=== PATIENT | female | born 1985 | race Caucasian/White ===

== ENCOUNTER → 2019-05-01 | Outpatient (CLI) | payer BC ==
[2019-04-22 20:22] VITALS: BP 137/74
[~2019-05-01] MED LIST: SPRINTEC 35 MCG1 TAB PO
[2019-05-03 14:46] LABS: GASTRIN 23 pg/mL (())
== END ==
LOC: LAB 08:22
DX: D3A.8 Other benign neuroendocrine tumors (principal)

== ENCOUNTER → 2020-05-28 | Outpatient (CLI) | payer BC ==
[2019-04-22 20:22] VITALS: BP 137/74
[2020-05-28 18:12] LABS: HEMATOCRIT 31.1 % (37.0-47.0); HEMOGLOBIN 9.8 g/dL (12.5-16.0); MEAN CELL VOLUME 107 fl (78-100); MEAN CORPUSCULAR HEMOGLOBIN 34 pg (27-31); MEAN CORPUSCULAR HGB CONC 32 g/dL (33-37); PLATELET COUNT 60 K/mm3 (130-400); RED BLOOD COUNT 2.91 M/mm3 (4.10-5.30); RED CELL DISTRIBUTION WIDTH 14.1 % (11.5-14.5); WHITE BLOOD COUNT 6.5 K/mm3 (4.8-10.8)
[2020-05-28 18:25] LABS: ALBUMIN 3.5 g/dL (3.5-5.0)
[2020-05-28 18:26] LABS: MEAN PLATELET VOLUME 12.1 fl (7.4-10.4); POTASSIUM 4.6 mmol/L (3.5-5.1)
[2020-05-28 18:27] LABS: CALCIUM 8.7 mg/dL (8.3-10.5)
[2020-05-28 18:28] LABS: TOTAL PROTEIN 8.2 g/dL (6.4-8.3)
[2020-05-28 18:30] LABS: TOTAL BILIRUBIN 4.5 mg/dL (0.2-1.2)
[2020-05-28 18:51] LABS: URINE APPEARANCE HAZY; URINE BILIRUBIN 3+ (NEGATIVE); URINE COLOR AMBER; URINE GLUCOSE 50 mg/dL mg/dL (NEGATIVE); URINE KETONE TR (NEGATIVE); URINE PROTEIN(semi-quant) 2+ mg/dL (NEGATIVE); URINE UROBILINOGEN 8 mg/dL (NORMAL)
[2020-05-28 18:52] LABS: URINE BLOOD TRACE (NEGATIVE); URINE LEUKOCYTE ESTERASE TRACE (NEGATIVE); URINE NITRATE NEGATIVE (NEGATIVE)
[2020-05-28 19:06] LABS: LYMPHOCYTE 9 % (20-51); NEUTROPHILS 81 % (42-75)
[2020-05-28 19:07] LABS: HYPOCHROMIA 1+; MONOCYTE 10 % (3-10)
== END ==
LOC: LAB 17:47
PROVIDERS: Nurse Practitioner
DX: R31.9 Hematuria, unspecified (principal)